=== PATIENT | female | born 1990 | race African-American/Black ===

== ENCOUNTER 2016-08-18 02:18 | Emergency (ER) | payer BC ==
[~2016-08-18] VITALS: Ht 157.5 cm; Wt 58.5 kg
[~2016-08-18 02:18] MED LIST: CIPR500T4 PO; ONDA4TAB14 PO; OXYC-209 PO
[2016-08-18 02:23] VITALS: Ht 157.5 cm; Wt 58.5 kg
[2016-08-18 07:07] LABS: URINE BLOOD (Dip) POC Trace-intact (NEGATIVE)
--- NOTE | 2016-08-18 07:58 | RADRPT ---
PROCEDURE: US Pelvis. CLINICAL INDICATION: pelvic pain TECHNIQUE: Multiple sonographic images of the pelvis were obtained utilizing a transabdominal and endovaginal technique. The images were reviewed on a PACS workstation. COMPARISON: 05/13/2016 FINDINGS: The uterus is normal in size with a normal appearance of the myometrium. The uterus measures 7.9 x 4.2 x 5.0 cm. The endometrial stripe is homogeneous in appearance and has the thickness of 12 mm. The ovaries are normal in echogenicity. Normal Doppler flow is identified in both ovaries. The right ovary measures 4.2 x 2.6 x 2.0 cm. The left ovary measures 4.8 x 2.3 x 2.8 cm. No free fluid is present within the pelvis. RPTAT: AA IMPRESSION: Slightly enlarged ovaries with no focal mass. Normal Doppler flow identified. .Favian Curry MD, Date Time Electronically viewed and signed by .Favian Curry MD, on 08/18/2016 07:35 .S/
[2016-08-18] MEDS ORDERED: IBUP-1542 PO (08:01)
[2016-08-18 08:08] VITALS: BP 117/68; PULSE 77; RESP 18
--- NOTE | 2016-08-18 08:24 | ERD ---
ER Documentation Chief Complaint Date/Time DATE: 08/18/16 TIME: 08:18 Chief Complaint left pelvic pain,hx ovarian cyst HPI 26-year-old female complaining of pelvic pain 6 hours. Pain is gradual onset, and sharp. She took ibuprofen which have helped the pain. She denies pain at this time. Patient stated that she has history of left ovarian cyst, and this feels very much like previous ovarian cyst pain. She was on OCP to control the ovarian cyst until 2 month ago. Denies fever or chills. Denies dysuria or hematuria. Denies flank pain. Denies nausea or vomiting. ROS All systems reviewed and are negative except as per history of present illness. Medications Home Meds Active Scripts Ibuprofen* (Motrin*) 600 Mg Tab, 600 MG PO Q6H Y for PAIN AND OR ELEVATED TEMP, #30 TAB Prov:YANA CARTER NP 08/18/16 Ondansetron (Ondansetron Odt) 4 Mg Tab.rapdis, 4 MG PO Q8 Y for NAUSEA AND/OR VOMITING, #30 TAB Prov:JUN GAVIN NP 05/13/16 Oxycodone HCl/Acetaminophen (Percocet 10-325 mg Tablet) 1 Each Tablet, 1 EACH PO Q6, #20 TAB Prov:JUN GAVIN NP 05/13/16 Ciprofloxacin Hcl* (Ciprofloxacin Hcl*) 500 Mg Tablet, 500 MG PO BID for 10 Days , TAB Prov:JUN GAVIN NP 05/13/16 Reported Medications [none] Unknown Strength No Conflict Check 05/13/16 Allergies Allergies: Coded Allergies: No Known Allergy (Unverified , 05/13/16) PMhx/Soc Medical and Surgical Hx: pt denies Medical Hx, pt denies Surgical Hx Hx Alcohol Use: No Hx Substance Use: No Hx Tobacco Use: No Smoking Status: Never smoker Physical Exam Vitals Vital Signs Date Time Temp Pulse Resp B/P Pulse Ox O2 Delivery O2 Flow Rate FiO2 08/18/16 08:08 77 18 117/68 99 Room Air 08/18/16 02:23 97.5 86 18 144/97 100 Physical Exam General impression: Well-developed, well-nourished. Alert, oriented, in no acute distress Head: Normocephalic, atraumatic. Eyes: PERRL, EOM normal. Conjunctiva not injected. ENT: External canals clear. TM's pearly dye. Nasal mucosa, oral mucosa and oropharynx are normal. Neck: Supple, nontender. No lymphadenopathy. No nuchal rigidity. Respiration: Normal respiratory effort. Lungs clear to auscultate bilaterally. No wheezes, rales or rhonchi. Cardiovascular: Regular rate and rhythm. No murmurs or extra heart sounds. Abdomen: Abdomen normal to inspection. Nontender. No masses or organomegaly. Bowel sounds normal. Back: Normal to inspection. No midline spine tenderness. No CVA tenderness. Neuro: Mental status normal, speech normal. [employer] grossly intact. Skin: Normal turgor. No rash or lesions. Psych: Normal mood and affect. Results 24 hrs Laboratory Tests Test 08/18/16 07:06 Bedside Urine Blood Trace-intact Bedside Urine Glucose (UA) Negative Bedside Urine Ketones (LAB) Negative Bedside Urine Leukocyte Esterase (L Trace Bedside Urine Nitrite (LAB) Negative Bedside Urine Protein (LAB) Negative Bedside Urine pH (LAB) 6.5 PROCEDURE: US Pelvis. CLINICAL INDICATION: pelvic pain TECHNIQUE: Multiple sonographic images of the pelvis were obtained utilizing a transabdominal and endovaginal technique. The images were reviewed on a PACS workstation. COMPARISON: 05/13/2016 FINDINGS: The uterus is normal in size with a normal appearance of the myometrium. The uterus measures 7.9 x 4.2 x 5.0 cm. The endometrial stripe is homogeneous in appearance and has the thickness of 12 mm. The ovaries are normal in echogenicity. Normal Doppler flow is identified in both ovaries. The right ovary measures 4.2 x 2.6 x 2.0 cm. The left ovary measures 4.8 x 2.3 x 2.8 cm. No free fluid is present within the pelvis. RPTAT: AA IMPRESSION: Slightly enlarged ovaries with no focal mass. Normal Doppler flow identified. .Favian Curry MD, Date Time Electronically viewed and signed by .Favian Curry MD, on 08/18/2016 07: 35 .S/ CC: RAULYANA X. REQUISITION APPROVER Procedures/MDM Well-appearing 26-year-old female presented to ED with pelvic pain 6 hours. Her pelvic ultrasound is normal, no ovarian cysts or torsion is noted. Urine is negative. Urine dip showed trace blood and trace leukocyte, otherwise negative. It is unknown the cause of her pelvic pain at this time, differential does include but not limited to mittelschmerz, urolithiasis, diverticulosis or diverticulitis. Low suspicion for acute appendicitis, cholecystitis, pancreatitis, bowel obstruction, or other acute abdomen. Patient is currently pain-free. Patient appears well, stable for discharge and outpatient management. I also advised patient to resume OCP. Medical decision making shared with patient and family. Education provided to patient and family. Patient and family expressed understanding of the plan. Medications on discharge: Ibuprofen. Follow-up: Primary care provider in 2-3 days or return to ED if worse. Departure Diagnosis: Primary Impression: Acute pain in female pelvis Condition: Good Patient Instructions: Pelvic Pain, Unknown Cause Referrals: [facility] YOU HAVE RECEIVED A MEDICAL SCREENING EXAM AND THE RESULTS INDICATE THAT YOU DO NOT HAVE A CONDITION THAT REQUIRES URGENT TREATMENT IN THE EMERGENCY DEPARTMENT. FURTHER EVALUATION AND TREATMENT OF YOUR CONDITION CAN WAIT UNTIL YOU ARE SEEN IN YOUR DOCTORS OFFICE WITHIN THE NEXT 1-2 DAYS. IT IS YOUR RESPONSIBILITY TO MAKE AN APPOINTMENT FOR FOLOW-UP CARE. IF YOU HAVE A PRIMARY DOCTOR --you should call your primary doctor and schedule an appointment IF YOU DO NOT HAVE A PRIMARY DOCTOR YOU CAN CALL OUR PHYSICIAN REFERRAL HOTLINE AT IF YOU CAN NOT AFFORD TO SEE A PHYSICIAN YOU CAN CHOSE FROM THE FOLLOWING [facility] [address] [facility] [address] [facility] [facility] [address] [facility] [address] [facility] [address] [facility] [facility]. [address] Hours: 8:00 am - 5:00 pm Additional Instructions: Call your primary care doctor TOMORROW for an appointment during the next 2-3 days.See the doctor sooner or return here if your condition worsens before your appointment time. YANA CARTER NP Aug 18, 2016 08:24
== END 2016-08-18 08:09 | disposition home or self-care (01) ==
LOC: FTE 02:18
DX: R10.2 Pelvic and perineal pain (principal)
CPT/HCPCS: 76830; 76856; 81003